=== PATIENT | male | born 1995 | race Two or more races ===

== ENCOUNTER 2024-11-18 13:57 | Emergency (ER) | payer BC, SELFPAY ==
[2024-11-18 13:57] VITALS: BMI 40.3
[2024-11-18 14:57] VITALS: BP 151/82; PULSE 101; RESP 24; TEMP 36.7; O2SAT 97
--- NOTE | 2024-11-18 15:03 | XR_ITS ---
Examination: Abdomen sonogram, Limited Date and time of exam: November 18, 2024 1854 hours INDICATIONS: Epigastric pain and vomiting today Technique: Real-time finn scale transabdominal sonographic images of the upper abdomen obtained. Findings: Normal gallbladder Normal common bile duct 0.3 cm Pancreatic head 3.4 cm Liver 14.7 cm no liver lesions fatty infiltration Normal hepatopedal portal venous flow Patent IVC IMPRESSION: Normal gallbladder Liver normal size with fatty infiltration
--- NOTE | 2024-11-18 15:04 | PD.EDRME ---
Rapid Medical Screening Exam RME Arrival date/time: 11/18/24 13:57 Chief Complaint: Abdominal Pain Vital signs: Vital Signs Temperature 98.1 F 11/18/24 14:57 Pulse Rate 101 H 11/18/24 14:57 Respiratory Rate 24 H 11/18/24 14:57 Blood Pressure 151/82 H 11/18/24 14:57 Pulse Oximetry (%) 97 11/18/24 14:57 Oxygen Delivery Method Room Air 11/18/24 14:57 Vital signs reviewed by provider: Yes RME Narrative: Patient is a 29-year-old male is in the emerged from with concerns for vomiting, and epigastric pain. Patient uses marijuana, in the past has been seen for cannabinoid hyperemesis syndrome. Says that he has been slowing down his marijuana use however yesterday started vomiting and has not stopped. Denies any other drug use, alcohol does not have any medical illnesses take any medications no allergies to medications no recent travel sick contacts fevers chills dysuria hematuria melena bloody stools. No surgery systolic
[2024-11-18] MEDS: HALOPERIDOL LACT INJ 5 MG/ML VIAL IM (15:13)
[2024-11-18 16:22] LABS: Basophils # (Auto) 0.1 Thou/mm3 (0.0-0.2); Basophils % (Auto) 0 % (0-2.5); Eosinophils # (Auto) 0.0 Thou/mm3 (0.0-0.5); Eosinophils % (Auto) 0 % (0-10); Hematocrit 49.1 % (41.0-53.0); Hemoglobin 17.2 g/dL (13.5-16.0); Immature Granulocytes Auto 0.06 Thou/mm3 (0.00-0.00); Lymphocytes # (Auto) 1.4 Thou/mm3 (1.0-4.8); Lymphocytes % (Auto) 9 % (10-50); Mean Corpuscular HGB Conc 35.0 g/dl (31.0-37.0); Mean Corpuscular Hemoglobin 29.4 pg (25.0-35.0); Mean Corpuscular Volume 84 fL (80-100); Monocytes # (Auto) 0.4 Thou/mm3 (0.0-0.8); Monocytes % (Auto) 3 % (0-12); Neutrophils # (Auto) 14.2 Thou/mm3 (1.8-7.7); Neutrophils % (Auto) 88 % (37-80); Nucleated Red Blood Cell # 0.00 Thou/mm3 (0.00-0.00); Nucleated Red Blood Cell % 0 /100 WBC (0); Platelet Count 466 Thou/mm3 (140-440); RDW Standard Deviation 40.0 fL (35.1-43.9); Red Blood Count 5.86 Miln/mm3 (4.50-5.90); White Blood Count 16.1 Thou/mm3 (3.8-10.6)
[2024-11-18 16:39] LABS: Alanine Aminotransferase 54 U/L (10-49); Albumin, Serum 4.9 gm/dL (3.5-5.0); Albumin/Globulin Ratio 1.6 (1.2-2.2); Alkaline Phosphatase 86 U/L (46-116); Anion Gap 13 (7-16); Aspartate Amino Transferase 34 U/L (0-34); BUN/Creatinine Ratio 12 Ratio (12-20); Bilirubin,Total 0.7 mg/dL (0.3-1.2); Blood Urea Nitrogen 14 mg/dL (9-23); Calcium 10.6 mg/dL (8.3-10.6); Calcium (Corrected) 10.6 mg/dL (8.5-10.1); Carbon Dioxide 21.8 mMol/L (20.0-31.0); Chloride 107 mMol/L (98-107); Creatinine (Component) 1.2 mg/dL (0.6-1.3); Estimated Creatinine Clearance 107.5 mL/min (>60); Globulin 3.1 gm/dL (2.3-3.5); Glucose 159 mg/dL (74-106); Lipase 32 U/L (12-53); Osmolality,Calculated 286 (275-295); Potassium 3.8 mMol/L (3.4-5.1); Sodium 142 mMol/L (136-145); Total Protein 8.0 gm/dL (5.7-8.2); eGFR > 60 See Note
[2024-11-18] MEDS: PROCHLORPERAZINE INJ 5 MG/ML VIAL 2 ML 10 MG IM (17:05)
[2024-11-18 17:34] LABS: Collection Type, Urine Clean Catch
[2024-11-18 17:48] LABS: Bacteria,Urine Rare; Bilirubin,Urine Negative (Negative); Blood,Urine 2+ (Negative); Clarity,Urine Clear (Clear/Hazy); Color,Urine Yellow (Lt Yel-Yel); Culture Indicated,Urine Not Indicated; Glucose, Urine Trace (Negative); Ketones,Urine 4+ (Negative); Leukocyte Esterase,Urine Negative (Negative); Nitrite,Urine Negative (Negative); PH,Urine 6.0 (5.0-7.0); Protein,Urine 2+ (Neg - Trace); RBC,Urine 8 /hpf (0-3); Specific Gravity,Urine 1.040 (1.001-1.035); Squamous Epithelial Cell,Urine < 1 /hpf (0-5); Urobilinogen,Urine Negative mg/dL (0.0-1.0); WBC,Urine 4 /hpf (0-5)
[2024-11-18 18:09] LABS: Amphetamine/Methamp Scrn,U Negative (Negative); Barbiturate Screen,Urine Negative (Negative); Benzodiazepines Screen,Urine Negative (Negative); Benzoylecgonine Screen, Ur Negative (Negative); Fentanyl Screen,Urine Negative (Negative); Opiate Screen,Urine Negative (Negative); THC Screen,Urine Positive (Negative)
--- NOTE | 2024-11-18 18:17 | EDNOTE_ITS ---
ED Abdominal Pain RME/HPI General Chief Complaint: Abdominal Pain Stated complaint: ABD PAIN/VOMITING SINCE YESTERDAY Time seen by provider: 11/18/24 17:43 Arrival date/time: 11/18/24 13:57 Limitations: no limitations RME / HPI RME / HPI narrative: Patient is a 29-year-old male is in the emerged from with concerns for vomiting, and epigastric pain. Patient uses marijuana, in the past has been seen for cannabinoid hyperemesis syndrome. Says that he has been slowing down his marijuana use however yesterday started vomiting and has not stopped. Denies any other drug use, alcohol does not have any medical illnesses take any medications no allergies to medications no recent travel sick contacts fevers chills dysuria hematuria melena bloody stools. No surgeries Related Data Previous Rx's ?Medication ?Instructions ?Recorded ondansetron 4 mg disintegrating 4 mg PO Q8H PRN nausea and 12/10/19 tablet vomiting #7 tabs dicyclomine 20 mg tablet 20 mg PO QID PRN abdominal p ain 12/13/19 #30 tabs ondansetron HCl 4 mg tablet 4 mg PO QID PRN nausea and 12/13/19 (Zofran) vomiting #20 tabs esomeprazole magnesium 40 mg 40 mg PO QDAY #30 caps capsule,delayed release (Nexium) Allergies Allergy/AdvReac Type Severity Reaction Status Date / Time No Known Allergies Allergy Verified 11/18/24 14:00 ED Exam General Limitations: Present no limitations General appearance: Present alert and other (Uncomfortable) Eye Eye exam: Present normal appearance ENT ENT exam: Present normal exam Neck Neck exam: Present normal inspection Chest Chest inspection: Present symmetric chest wall rise Respiratory Respiratory exam: Present normal lung sounds bilaterally; Absent respiratory distress Cardiovascular Cardiovascular exam: Present normal rhythm Abdominal Exam Abdominal exam: Present soft; Absent distention, tenderness, guarding or rebound Extremities Exam Extremities exam: Present normal inspection Neurological Exam Neurological exam: Present alert Skin Skin exam: Present warm and dry Course Quality Measures none Orders Category Date Time Status EKG (ED ONLY) *Do not use* NOW Care 11/18/24 15:03 Completed EKG (ED Only) Stat Exams 11/18/24 15:03 Ordered US abdomen limited Stat Exams 11/18/24 15:03 Completed CBC Stat Lab 11/18/24 15:50 Completed CMP [Comprehensive Metabolic Panel] Stat Lab 11/18/24 15:50 Completed Drug Screen,Urine Stat Lab 11/18/24 17:29 Completed Lipase Stat Lab 11/18/24 15:50 Completed UA, C/S IF [Urinalysis, C/S if Indicated] Stat Lab 11/18/24 17:29 Completed DiphenhydrAMINE INJ [Benadryl Inj] Med 11/18/24 16:48 Discontinued 50 mg IM X1 ONE Haloperidol Lactate [Haldol Inj] Med 11/18/24 15:03 Discontinued 5 mg IM X1 ONE Prochlorperazine Inj [Compazine Inj] Med 11/18/24 16:47 Discontinued 10 mg IM X1 ONE Ringers Lactated 1000 ml [Lactated Ringers] 1,000 ml Med 11/18/24 16:47 Discontinued IV 999 mls/hr Vital Signs Vital signs: Vital Signs Temperature 98.1 F 11/18/24 14:57 Pulse Rate 101 H 11/18/24 14:57 Respiratory Rate 24 H 11/18/24 14:57 Blood Pressure 151/82 H 11/18/24 14:57 Pulse Oximetry (%) 97 11/18/24 14:57 Oxygen Delivery Method Room Air 11/18/24 14:57 Abdominal Pain MDM MDM Narrative MDM Narrative:: Patient is a 29-year-old male with medical history notable for recurrent marijuana use, recurrent episodes of cannabinoid hyperemesis syndrome that seen emerged from concerns for vomiting and abdominal pain. Vital signs and exam as listed. Concern for cannabinoid hyperemesis syndrome, gastritis, cholelithiasis, pancreatitis metabolic disturbance among others. Ordered labs, right upper quadrant ultrasound offer medication for symptom relief. Labs with evidence of leukocytosis 16, hemoglobin 17 platelets 466 appears hemoconcentrated likely secondary to recurrent episodes of dehydration. Encourage oral hydration. No acute metabolic significant disturbances. Urinalysis without evidence of infection. Drug screen positive for marijuana. Right upper quadrant ultrasound with evidence of fatty liver. On multiple reevaluations patient hemodynamically stable, not in distress, symptoms completely resolved. Tolerating oral intake. Will discharge to home with close return precautions follow-up with his doctor as well as recommendation for sobriety. Patient data External records reviewed:: [facility] previous records Clinical information provided by:: patient and family Social determinants that could affect healthcare access:: substance use Patient has the following chronic illnesses:: None How is presenting disease/condition affected by chronic disease/condition?: exacerbated by Evaluation data The following diagnostics were reviewed and interpreted by me:: lab results and radiology exam(s) Lab and/or radiology exams considered but not ordered:: None Interpretation Summary: See MDM Medications / Prescriptions Medications or Prescriptions considered but not ordered:: None Medication administrations:: Medication Administration History Discontinued Medications Diphenhydramine HCl (Diphenhydramine Inj 50 Mg/Ml Vial) 50 mg IM X1 ONE Stop: 11/18/24 16:49 Last Admin: 11/18/24 17:05 Dose: 50 mg Documented By: Haloperidol Lactate (Haloperidol Lact Inj 5 Mg/Ml Vial) 5 mg IM X1 ONE Stop: 11/18/24 15:04 Last Admin: 11/18/24 15:13 Dose: 5 mg Documented By: Lactated Ringer's (Lactated Ringers) 1,000 mls @ 999 mls/hr IV .Q1H1M ONE Stop: 11/18/24 17:47 Prochlorperazine Edisylate (Prochlorperazine Inj 5 Mg/Ml Vial 2 Ml) 10 mg IM X1 ONE; Protocol Stop: 11/18/24 16:48 Last Admin: 11/18/24 17:05 Dose: 10 mg Documented By: See above Consultations Consultation(s) initiated? (list below): No Diagnosis Differential diagnosis abdominal pain: abdominal pain, constipation, gastroenteritis, pancreatitis and other (Cannabinoid hyperemesis) Most likely diagnosis given after review of the tests above:: Abdominal pain, vomiting, cannabinoid hyperemesis Admission Indicated Admission indicated?: not indicated Admission Request Was there a request for admission?: No Disposition Plan Disposition Plan: Discharge Discharge Attestation Discharge Attestation: The patient and all family members were given an opportunity to ask questions and understood the discharge instructions. Discharge instructions specifically effects, indications for sooner follow up or return to the emergency department, and the expected course of current diagnosis. Patient condition: Stable Discharge Plan Plan Patient Disposition: HOME (Self Care) Prescriptions/Referrals Prescriptions/Med Rec: No Action ondansetron 4 mg tablet,disintegrating 4 mg PO Q8H PRN (Reason: nausea and vomiting) Qty: 7 0RF ondansetron HCl [Zofran] 4 mg tablet 4 mg PO QID PRN (Reason: nausea and vomiting) Qty: 20 0RF dicyclomine 20 mg tablet 20 mg PO QID PRN (Reason: abdominal pain) Qty: 30 0RF esomeprazole magnesium [Nexium] 40 mg capsule,delayed release(DR/EC) 40 mg PO QDAY Qty: 30 0RF Referrals: Dustin Vidal MD [Primary Care Provider] - In 1 week Problem List Clinical Impression: Abdominal pain Patient/Caregiver Discharge Instructions Education Materials: Abdominal Pain Additional Instructions: I highly recommend that you abstain from marijuana and THC use as this may be contributing to your current episodes of vomiting and abdominal pain. Please follow-up with your primary care doctor within 1 to 2 days Print Language: French Stand Alone Forms: Keli Award Info., Patient Portal Info Letter
== END 2024-11-18 18:30 | disposition home or self-care (01) ==
PROVIDERS: Emergency Provider Emergency Medicine; PCP Family Medicine
DX: R10.13 Epigastric pain (principal); R11.10 Vomiting, unspecified; D72.829 Elevated white blood cell count, unspecified; K76.0 Fatty (change of) liver, not elsewhere classified
CPT/HCPCS: 36415; 76705; 80053; 80307; 81001; 83690; 85025; 93005; 96372; 99283; J0780; J1200; J1630